=== PATIENT | female | born 1935 | race Caucasian/White ===

== ENCOUNTER 2019-12-25 11:26 | Emergency (ER) | payer OTHER ==
[2019-12-25 11:38] VITALS: BP 107/43; PULSE 83; BMI 34.3
--- NOTE | 2019-12-25 11:50 | PDOC ---
History of Present Illness - General Chief Complaint: Pain Stated Complaint: RT. FINGER PAIN Time Seen by Provider: 12/25/19 11:42 History Source: Patient Exam Limitations: No Limitations (unable to extend R middle finger since yesterday, denies trauma) - History of Present Illness Is this a multiple visit Asthma Patient?: No Past History - Travel History Traveled outside of the country in the last 30 days: No - Medical History Allergies/Adverse Reactions: Allergies Allergy/AdvReac Type Severity Reaction Status Date / Time aspirin Allergy Severe Vomiting Verified 12/25/19 11:38 cephalexin [Cephalexin] Allergy Severe DIARRHEA Verified 12/25/19 11:38 erythromycin base Allergy Severe DIARRHEA Verified 12/25/19 11:38 [Erythromycin Base] fexofenadine HCl Allergy Severe Swelling Verified 12/25/19 11:38 [From Cielo-D] gabapentin [From Neurontin] Allergy Severe Swelling Verified 12/25/19 11:38 levofloxacin [From Levaquin] Allergy Severe Rash Verified 12/25/19 11:38 NSAIDS (Non-Steroidal Allergy Severe Verified 12/25/19 11:38 Anti-Inflamma pseudoephedrine HCl Allergy Severe Swelling Verified 12/25/19 11:38 [From Cielo-D] sulfamethoxazole Allergy Severe Rash Verified 12/25/19 11:38 [From Bactrim] trimethoprim [From Bactrim] Allergy Severe Rash Verified 12/25/19 11:38 Home Medications: Ambulatory Orders Allopurinol 300 mg PO DAILY 09/02/11 Furosemide [Lasix] 20 mg PO UTDICT 09/02/11 Levothyroxine [Synthroid -] 112 mcg PO DAILY 09/02/11 Metformin HCl [Glucophage] 500 mg PO BID 09/02/11 Metoclopramide Oral Soln [Reglan Oral Solution -] 10 mg PO BID 09/02/11 Nitrofurantoin Monohyd/M-Cryst [Macrobid 100 mg Capsule] 50 mg PO HS 09/02/11 Omeprazole 40 mg PO DAILY 09/02/11 Simvastatin [Zocor -] 10 mg PO HS 09/02/11 Tolterodine Tartrate LA [Detrol LA -] 4 mg PO DAILY 09/02/11 Valsartan [Diovan] 80 mg PO DAILY 09/02/11 Nitrofurantoin Monohyd/M-Cryst [Macrobid -] 100 mg PO BID #20 capsule 01/21/15 Ondansetron [Zofran Odt -] 4 mg SL TID #21 od.tablet 05/03/14 Oxycodone HCl/Acetaminophen [Percocet 5/325 -] 1 - 2 tab PO Q6H #20 tab 05/03/14 Amitriptyline HCl [Elavil -] 10 mg PO HS #90 tablet 10/02/15 Amitriptyline HCl [Elavil -] 25 mg PO DAILY #60 tablet 01/24/16 Amitriptyline HCl [Elavil -] 50 mg PO DAILY #60 tablet 05/29/16 Amitriptyline HCl 25 mg PO BID 30 Days #60 tablet 09/22/19 Gabapentin 300 mg PO QID 30 Days #120 capsule 10/03/19 Anemia: No Asthma: No Cancer: No Cardiac Disorders: No CVA: No COPD: No CHF: No Dementia: No Diabetes: Yes (NIDDM) GI Disorders: Yes (GERD) Disorders: Yes (HX UTI) HTN: Yes Hypercholesterolemia: Yes Liver Disease: No Seizures: No Thyroid Disease: Yes (HYPO) - Surgical History Abdominal Surgery: No Appendectomy: No Cardiac Surgery: No Cholecystectomy: No Lung Surgery: No Neurologic Surgery: No Orthopedic Surgery: No - Psycho-Social/Smoking History Smoking History: Never smoked Have you smoked in the past 12 months: No If you are a former smoker, when did you quit?: 1984 - Substance Abuse Hx (Audit-C & DAST Scrn) How often the patient has a drink containing alcohol: Never Score: In Men: 4 or > Positive; In Women: 3 or > Positive: 0 Screen Result (Pos requires Nsg. Audit-10AR): Negative Review of Systems - Review of Systems Constitutional: No: Chills, Fever Musculoskeletal: Yes: Joint Pain, Joint Stiffness. No: Joint Swelling, Muscle Pain, Muscle Weakness, Neck Pain *Physical Exam - Vital Signs Last Vital Signs Temp Pulse Resp BP Pulse Ox 83 18 107/43 L 100 12/25/19 11:35 12/25/19 11:35 12/25/19 11:35 12/25/19 11:35 - Physical Exam General Appearance: Yes: Nourished HEENT: positive: EOMI Musculoskeletal: positive: Other (R middle finger locked in flexion position, unable to extend, sensation intact. pulse intact, FROM in wrist) Neurologic: positive: field service supervisor II-XII NML intact, Fully Oriented, Alert, Normal Mood/Affect, Normal Response, Motor Strength / ED Treatment Course - RADIOLOGY Radiology Studies Ordered: Category Date Time Status FINGER(S) RIGHT [RAD] Stat Radiology 12/25/19 11:45 Ordered Medical Decision Making - Medical Decision Making 12/25/19 11:51 84 years old female [id number] presents with right middle finger that was permanently in flexion position since yesterday. Patient denies any trauma Vital signs stable. Exam consist of right middle finger that is permanently in the flexion position unable to extend. dx: trigger finger Plan is x-ray will attempt to digital block to extend finger splint ortho referral 12/25/19 11:56 12/25/19 12:46 Procedure note: Area cleanse with betadine Pt anesthetized with 1% lidocaine along the A1 rodolfo region finger was manually reduced and extension was obtained, splint applied ortho referral given sensation was intact 12/25/19 13:05 Discharge - Discharge Information Problems reviewed: Yes Clinical Impression/Diagnosis: Trigger finger of right hand Qualifiers: Trigger finger location: middle finger Qualified Code(s): M65.331 - Trigger finger, right middle finger Condition: Good Disposition: HOME - Admission No - Additional Discharge Information Prescription Drug Monitoring Program (I-STOP) results: I-STOP not reviewed - Follow up/Referral Referrals: Cheri Medley MD [Primary Care Provider] - Hima Alarcon MD [Staff Physician] - - Patient Discharge Instructions Patient Printed Discharge Instructions: Trigger Finger Additional Instructions: Please follow up with orthopedic keep splint on return to the ER if worsening symptom occurs - Post Discharge Activity
== END 2019-12-25 12:53 | disposition home or self-care (01) ==
LOC: JERFT 11:26
DX: M65.331 Trigger finger, right middle finger (principal)
CPT/HCPCS: 73140-TC-RT-FY; 99283-25

== ENCOUNTER 2021-02-21 12:53 | Inpatient (IN) | payer OTHER ==
[2021-02-21] MEDS ORDERED: ACETAMINOPHEN 1000 MG/100 ML VIAL IVPB ONE (13:24)
[2021-02-21] MEDS ORDERED: ACETAMINOPHEN INJECTION 100 ML IVPB ONE (13:26)
[2021-02-21 13:54] LABS: BASO % 3.7 % (0-2.0); HEMATOCRIT 36.6 % (32.4-45.2); HEMOGLOBIN 12.6 GM/dL (10.7-15.3); LYMPH % 12.5 % (8-40); MCH 32.3 pg (25.7-33.7); MCHC 34.5 g/dl (32.0-36.0); MEAN CELL VOLUME 93.5 fl (80-96); MEAN PLT VOLUME 9.4 fl (7.5-11.1); MONO % 8.6 % (3.8-10.2); NEUT % 75.2 % (42.8-82.8); PLATELET COUNT 110 10^3/uL (134-434); RBC 3.92 M/mm3 (3.60-5.2); RDW 15.3 % (11.6-15.6); WHITE BLOOD COUNT 6.9 K/mm3 (4.0-10.0)
[2021-02-21 14:05] LABS: INR 1.27 (0.83-1.09); PROTHROMBIN TIME (PATIENT) 14.3 SEC (9.7-13.0)
[2021-02-21 14:08] LABS: ACTIVATED PTT 24.2 SECONDS (25.2-36.5)
[2021-02-21 14:18] LABS: CHLORIDE 103 mmol/L (98-107); SODIUM 137 mmol/L (136-145)
[2021-02-21 14:20] LABS: ALBUMIN 3.6 g/dl (3.4-5.0); ANION GAP 9 MMOL/L (8-16); BLOOD UREA NITROGEN 22.9 mg/dL (7-18); CALCIUM 9.2 mg/dL (8.5-10.1); CO2 25 mmol/L (21-32)
[2021-02-21 14:21] LABS: GLUCOSE,RANDOM 126 mg/dL (74-106); MAGNESIUM 1.9 mg/dL (1.8-2.4)
[2021-02-21 14:23] LABS: SGPT/ALT 28 U/L (13-61)
[2021-02-21 14:24] LABS: SGOT/AST 50 U/L (15-37)
[2021-02-21 14:25] LABS: BILIRUBIN,TOTAL 1.3 mg/dL (0.2-1); TOT PROT 7.8 g/dl (6.4-8.2)
[2021-02-21 14:25] LABS: EPI CELLS 1 /uL (0-25.1); HYALINE CASTS 0 /uL (0-3.1); PH,URINE 5.5 (5.0-8.0); URINE APPEARANCE CLEAR; URINE BACTERIA 3880 /uL (0-1359); URINE BILIRUBIN NEGATIVE (NEGATIVE); URINE COLOR YELLOW; URINE GLUCOSE (UA) NEGATIVE (NEGATIVE); URINE KETONE TRACE (NEGATIVE); URINE LEUK ESTERASE 2+ (NEGATIVE); URINE NITRITE POSITIVE (NEGATIVE); URINE PROTEIN 2+ (NEGATIVE); URINE RBC 8 /uL (0-23.9); URINE UROBILINOGEN 0.2 mg/dL (0.2-1.0); URINE WBC 630 /uL (0-25.8)
[2021-02-21 14:26] LABS: ALK PHOS 77 U/L (45-117)
[2021-02-21 14:29] LABS: N-TERMINAL BNP 698.3 pg/ml (5-450)
[2021-02-21] MEDS ORDERED: NITROFURANTOIN MACROCRYSTAL 50 MG CAPSULE (FP) PO SCH (14:45)
[2021-02-21] MEDS ORDERED: NITROFURANTOIN MACROCRYSTAL 50 MG CAPSULE (FP) ONE (16:47)
[2021-02-22 08:09] LABS: BLOOD UREA NITROGEN 21.7 mg/dL (7-18); CALCIUM 8.9 mg/dL (8.5-10.1)
[2021-02-22 08:13] LABS: CREATININE 0.8 mg/dL (0.55-1.3)
[2021-02-22 08:15] LABS: BASO % 2.3 % (0-2.0); HEMATOCRIT 34.6 % (32.4-45.2); HEMOGLOBIN 12.1 GM/dL (10.7-15.3); LYMPH % 21.2 % (8-40); MCH 32.2 pg (25.7-33.7); MCHC 34.9 g/dl (32.0-36.0); MEAN CELL VOLUME 92.3 fl (80-96); MEAN PLT VOLUME 9.4 fl (7.5-11.1); NEUT % 66.5 % (42.8-82.8); PLATELET COUNT 106 10^3/uL (134-434); RBC 3.74 M/mm3 (3.60-5.2); WHITE BLOOD COUNT 7.3 K/mm3 (4.0-10.0)
[2021-02-22] MEDS: NITROFURANTOIN MACROCRYSTAL 50 MG CAPSULE (FP) PO SCH ×3 (12:55→23:30)
[2021-02-22] MEDS ORDERED: NITROFURANTOIN MACROCRYSTAL 50 MG CAPSULE (FP) ONE (12:55)
[2021-02-22 18:45] VITALS: BMI 31.1
[2021-02-22] MEDS: INSULIN SLIDING SCALE (NOVOLOG) 1 VIAL SQ SCH (18:48)
[2021-02-22] MEDS: ATORVASTATIN CA 10 MG TABLET (FP) PO SCH (21:51)
[2021-02-22] MEDS ORDERED: MELATONIN 5 MG TABLETS PO ONE (23:15)
[2021-02-22] MEDS: ACETAMINOPHEN 1000 MG/100 ML VIAL IVPB PRN (23:30)
[2021-02-23] MEDS: INSULIN SLIDING SCALE (NOVOLOG) 1 VIAL SQ SCH (06:53)
[2021-02-23] MEDS: NITROFURANTOIN MACROCRYSTAL 50 MG CAPSULE (FP) PO SCH ×3 (06:53→17:47)
[2021-02-23] MEDS: LEVOTHYROXINE NA 100 MCG TABLET (FP) PO SCH (06:53)
[2021-02-23 08:40] LABS: BASO % 0.8 % (0-2.0); HEMATOCRIT 33.4 % (32.4-45.2); HEMOGLOBIN 11.6 GM/dL (10.7-15.3); LYMPH % 26.6 % (8-40); MCH 32.3 pg (25.7-33.7); MCHC 34.7 g/dl (32.0-36.0); MEAN PLT VOLUME 9.6 fl (7.5-11.1); MONO % 8.8 % (3.8-10.2); NEUT % 63.8 % (42.8-82.8); PLATELET COUNT 106 10^3/uL (134-434); RBC 3.59 M/mm3 (3.60-5.2); RDW 15.3 % (11.6-15.6); WHITE BLOOD COUNT 5.8 K/mm3 (4.0-10.0)
[2021-02-23 09:15] LABS: ALBUMIN 2.9 g/dl (3.4-5.0); CALCIUM 8.5 mg/dL (8.5-10.1)
[2021-02-23 09:16] LABS: BLOOD UREA NITROGEN 21.5 mg/dL (7-18)
[2021-02-23 09:17] LABS: TOT PROT 6.4 g/dl (6.4-8.2)
[2021-02-23 09:18] LABS: CREATININE 0.8 mg/dL (0.55-1.3); URIC ACID 4.6 mg/dL (2.6-7.2)
[2021-02-23] MEDS ORDERED: PT OWN MED DRAWER 7, Y5N ONE (09:49)
[2021-02-23] MEDS: ALLOPURINOL 300 MG TABLET (FP) PO SCH (09:51)
[2021-02-23] MEDS: FUROSEMIDE 20 MG TABLET (FP) PO SCH (09:51)
[2021-02-23] MEDS: ACETAMINOPHEN 1000 MG/100 ML VIAL IVPB PRN ×2 (09:52→22:03)
[2021-02-23] MEDS: HEPARIN NA (PORCINE) 5,000 UNITS/ML 1ML VIAL SQ SCH (21:34)
[2021-02-23] MEDS: ATORVASTATIN CA 10 MG TABLET (FP) PO SCH (21:34)
[2021-02-24] MEDS: NITROFURANTOIN MACROCRYSTAL 50 MG CAPSULE (FP) PO SCH ×4 (00:53→17:47)
[2021-02-24] MEDS: LEVOTHYROXINE NA 100 MCG TABLET (FP) PO SCH (06:37)
[2021-02-24] MEDS ORDERED: PT OWN MED DRAWER 7, Y5N ONE (09:41)
[2021-02-24] MEDS: ALLOPURINOL 300 MG TABLET (FP) PO SCH (10:03)
[2021-02-24] MEDS: FUROSEMIDE 20 MG TABLET (FP) PO SCH (10:03)
[2021-02-24] MEDS: ACETAMINOPHEN 325 MG TABLET (FP) PO PRN ×2 (10:03→21:29)
[2021-02-24] MEDS: LIDOCAINE 5% TOPICAL PATCH TP SCH (10:04)
[2021-02-24] MEDS: HEPARIN NA (PORCINE) 5,000 UNITS/ML 1ML VIAL SQ SCH ×2 (10:05→21:29)
[2021-02-24] MEDS: INSULIN SLIDING SCALE (NOVOLOG) 1 VIAL SQ SCH ×2 (11:23→11:28)
[2021-02-24] MEDS: LIDOCAINE PATCH REMOVAL MC SCH (21:29)
[2021-02-24] MEDS: MELATONIN 5 MG TABLETS PO PRN (21:29)
[2021-02-24] MEDS: ATORVASTATIN CA 10 MG TABLET (FP) PO SCH (21:29)
[2021-02-25] MEDS: NITROFURANTOIN MACROCRYSTAL 50 MG CAPSULE (FP) PO SCH ×4 (01:08→17:29)
[2021-02-25] MEDS: LEVOTHYROXINE NA 100 MCG TABLET (FP) PO SCH (07:39)
[2021-02-25] MEDS ORDERED: INSULIN (NOVOLOG) ASPART 100 UNITS/ML 10ML VIAL ONE (10:38)
[2021-02-25] MEDS ORDERED: PT OWN MED DRAWER 7, Y5N ONE (10:39)
[2021-02-25] MEDS: LIDOCAINE 5% TOPICAL PATCH TP SCH (10:47)
[2021-02-25] MEDS: HEPARIN NA (PORCINE) 5,000 UNITS/ML 1ML VIAL SQ SCH ×2 (10:47→21:15)
[2021-02-25] MEDS: FUROSEMIDE 20 MG TABLET (FP) PO SCH (10:47)
[2021-02-25] MEDS: ALLOPURINOL 300 MG TABLET (FP) PO SCH (10:47)
[2021-02-25] MEDS: INSULIN SLIDING SCALE (NOVOLOG) 1 VIAL SQ SCH (10:48)
[2021-02-25] MEDS: metFORMIN HCL 500 MG TABLET (FP) PO SCH ×2 (12:37→17:29)
[2021-02-25] MEDS: ATORVASTATIN CA 10 MG TABLET (FP) PO SCH (21:16)
[2021-02-25] MEDS: MELATONIN 5 MG TABLETS PO PRN (21:16)
[2021-02-25] MEDS: ACETAMINOPHEN 325 MG TABLET (FP) PO PRN (21:16)
[2021-02-25] MEDS: LIDOCAINE PATCH REMOVAL MC SCH (22:00)
[2021-02-26] MEDS: NITROFURANTOIN MACROCRYSTAL 50 MG CAPSULE (FP) PO SCH ×3 (00:13→12:03)
[2021-02-26] MEDS: ACETAMINOPHEN 325 MG TABLET (FP) PO PRN (03:42)
[2021-02-26] MEDS: LEVOTHYROXINE NA 100 MCG TABLET (FP) PO SCH (06:14)
[2021-02-26] MEDS: metFORMIN HCL 500 MG TABLET (FP) PO SCH (06:15)
[2021-02-26] MEDS ORDERED: PT OWN MED DRAWER 7, Y5N ONE (09:57)
[2021-02-26] MEDS: HEPARIN NA (PORCINE) 5,000 UNITS/ML 1ML VIAL SQ SCH (10:02)
[2021-02-26] MEDS: LIDOCAINE 5% TOPICAL PATCH TP SCH (10:02)
[2021-02-26] MEDS: FUROSEMIDE 20 MG TABLET (FP) PO SCH (10:02)
[2021-02-26] MEDS: INSULIN SLIDING SCALE (NOVOLOG) 1 VIAL SQ SCH (10:04)
[2021-02-26] MEDS: ALLOPURINOL 300 MG TABLET (FP) PO SCH (10:04)
[2021-02-26 12:26] VITALS: BP 118/54; PULSE 75; TEMP 97.9
== END 2021-02-26 16:01 | disposition home health service (06) | DRG 690 ==
LOC: JER 12:53 → JERBED 20:49 → J6S 02-22 18:23
PROVIDERS: ADMIT Internal Medicine; ATTEND Internal Medicine
DX: N39.0 Urinary tract infection, site not specified (principal); S32.050A Wedge compression fracture of fifth lumbar vertebra, initial encounter for closed fracture; M48.56XA Collapsed vertebra, not elsewhere classified, lumbar region, initial encounter for fracture; E11.9 Type 2 diabetes mellitus without complications; I10 Essential (primary) hypertension; E78.5 Hyperlipidemia, unspecified; E03.9 Hypothyroidism, unspecified; F41.9 Anxiety disorder, unspecified; K21.9 Gastro-esophageal reflux disease without esophagitis; R26.2 Difficulty in walking, not elsewhere classified; W19.XXXA Unspecified fall, initial encounter; Y93.9 Activity, unspecified; Y92.89 Other specified places as the place of occurrence of the external cause; Y99.9 Unspecified external cause status
CPT/HCPCS: 36415; 70450-TC; 71045-TC-FY; 72125-TC; 72170-TC-FY; 72192-TC; 73523-TC-FY; 73552-TC-RT-FY; 73562-TC-RT-FY; 73590-TC-RT-FY; 73610-TC-RT-FY; 73630-TC-RT-FY; 76604; 76705-TC; 80048; 80053; 81003; 82550; 82553; 82962; 83036; 83735; 83880; 84443; 84484; 84550; 85025; 85610; 85730; 87086; 87186; 93308; 97116-GP; 97161-GP; 99285-25; C9803; G0378; J0131; J1644; U0003; U0005

== ENCOUNTER 2021-03-28 10:16 | Inpatient (IN) | payer OTHER ==
[2021-03-28] MEDS ORDERED: LACTATED RINGERS SOLUTION 1,000 ML IV STA (10:53)
[2021-03-28] MEDS ORDERED: PIPERACILLIN/TAZOB 4.5 GM 4.5 GM in DEXTROSE 5%-WATER 100 ML IVPB ONE (11:07)
[2021-03-28] MEDS ORDERED: VANCOMYCIN 1 GM in D5W (PRE-DOCKED) 1,000 MG/250 ML IVPB ONE (11:07)
[2021-03-28] MEDS ORDERED: PIPERACILLIN/TAZOB 4.5 GM 4.5 GM/100 ML BAG IVPB ONE (11:23)
[2021-03-28] MEDS ORDERED: VANCOMYCIN 1 GRAM (PRE-DOCKED) 1,000 MG/250 ML BAG IVPB ONE (11:23)
[2021-03-28 11:28] LABS: VENOUS BASE EXCESS -1.1 mmol/L (-2-2); VENOUS O2 SATURATION 50.9 % (70-80); VENOUS PCO2 40.1 mmHg (38-52); VENOUS PH 7.39 (7.310-7.410)
[2021-03-28 11:34] LABS: BASO % 0.3 % (0-2.0); HEMATOCRIT 31.5 % (32.4-45.2); HEMOGLOBIN 10.9 GM/dL (10.7-15.3); LYMPH % 20.8 % (8-40); MCH 32.3 pg (25.7-33.7); MCHC 34.6 g/dl (32.0-36.0); MEAN CELL VOLUME 93.3 fl (80-96); MEAN PLT VOLUME 8.8 fl (7.5-11.1); MONO % 10.2 % (3.8-10.2); NEUT % 68.7 % (42.8-82.8); PLATELET COUNT 88 10^3/uL (134-434); RBC 3.37 M/mm3 (3.60-5.2); RDW 15.6 % (11.6-15.6); WHITE BLOOD COUNT 3.6 K/mm3 (4.0-10.0)
[2021-03-28 11:41] LABS: INR 1.14 (0.83-1.09); PROTHROMBIN TIME (PATIENT) 13.3 SEC (9.7-13.0)
[2021-03-28 11:43] LABS: ACTIVATED PTT 24.6 SECONDS (25.2-36.5)
[2021-03-28 11:48] LABS: CHLORIDE 104 mmol/L (98-107); SODIUM 137 mmol/L (136-145)
[2021-03-28 11:51] LABS: ALBUMIN 3.1 g/dl (3.4-5.0); ANION GAP 11 MMOL/L (8-16); BLOOD UREA NITROGEN 28.1 mg/dL (7-18); CALCIUM 8.5 mg/dL (8.5-10.1); CO2 22 mmol/L (21-32)
[2021-03-28 11:52] LABS: GLUCOSE,RANDOM 149 mg/dL (74-106)
[2021-03-28 11:54] LABS: BILIRUBIN,DIRECT 0.3 mg/dL (0.0-0.2); CREATININE 1.2 mg/dL (0.55-1.3); SGOT/AST 41 U/L (15-37)
[2021-03-28 11:55] LABS: SGPT/ALT 14 U/L (13-61)
[2021-03-28 11:56] LABS: BILIRUBIN,TOTAL 0.6 mg/dL (0.2-1); LDH 380 U/L (84-246); TOT PROT 7.3 g/dl (6.4-8.2)
[2021-03-28 11:57] LABS: ALK PHOS 56 U/L (45-117)
[2021-03-28 12:07] LABS: EPI CELLS 3 /uL (0-25.1); HYALINE CASTS 1 /uL (0-3.1); URINE APPEARANCE TURBID; URINE BACTERIA >9,000 /uL (0-1359); URINE BILIRUBIN NEGATIVE (NEGATIVE); URINE COLOR YELLOW; URINE GLUCOSE (UA) NEGATIVE (NEGATIVE); URINE KETONE TRACE (NEGATIVE); URINE LEUK ESTERASE 3+ (NEGATIVE); URINE NITRITE POSITIVE (NEGATIVE); URINE PROTEIN 3+ (NEGATIVE); URINE RBC 149 /uL (0-23.9); URINE WBC 9596 /uL (0-25.8)
[2021-03-28] MEDS ORDERED: ALBUTEROL SO4 HFA INHALER IH PRN (13:47)
[2021-03-28] MEDS ORDERED: DEXAMETHASONE SOD PHOSPHATE 4 MG/1 ML VIAL IVPB ONE (13:47)
[2021-03-28] MEDS ORDERED: ACETAMINOPHEN 325 MG TABLET (FP) PO PRN (13:48)
[2021-03-28] MEDS ORDERED: ASCORBIC ACID 500 MG TABLET (FP) ONE (14:28)
[2021-03-28] MEDS ORDERED: DEXAMETHASONE SOD PHOSPHATE 10 MG/1 ML VIAL ONE (14:29)
[2021-03-28] MEDS ORDERED: ENOXAPARIN NA (PORCINE) 40 MG/0.4 ML DISP.SYRIN SQ ONE (14:29)
[2021-03-28] MEDS: ASCORBIC ACID 500 MG TABLET (FP) PO SCH (14:37)
[2021-03-28] MEDS: ENOXAPARIN NA (PORCINE) 40 MG/0.4 ML DISP.SYRIN SQ SCH (14:37)
[2021-03-28] MEDS ORDERED: metFORMIN HCL 500 MG TABLET (FP) ONE (17:04)
[2021-03-28] MEDS: INSULIN SLIDING SCALE (NOVOLOG) 1 VIAL SQ SCH (17:10)
[2021-03-28] MEDS: metFORMIN HCL 500 MG TABLET (FP) PO SCH (17:10)
[2021-03-28] MEDS ORDERED: PIPERACILLIN/TAZOB 3.375 GM 3.375 GM/50 ML BAG IVPB ONE (18:29)
[2021-03-28] MEDS: PIPERACILLIN/TAZOB 3.375 GM 3.375 GM in DEXTROSE 5%-WATER - 50 ML IVPB SCH (18:53)
[2021-03-28] MEDS ORDERED: REMDESIVIR 200 MG in SODIUM CHLORIDE 250 ML IVPB ONE (19:30)
[2021-03-28] MEDS ORDERED: ATORVASTATIN CA 10 MG TABLET (FP) ONE (20:13)
[2021-03-28] MEDS: ATORVASTATIN CA 10 MG TABLET (FP) PO SCH (21:15)
[2021-03-28] MEDS ORDERED: MELATONIN 5 MG TABLETS ONE (23:32)
[2021-03-28] MEDS: MELATONIN 5 MG TABLETS PO PRN (23:39)
[2021-03-29] MEDS ORDERED: PIPERACILLIN/TAZOB 3.375 GM 3.375 GM/50 ML BAG IVPB ONE ×2 (01:41→09:12)
[2021-03-29] MEDS: PIPERACILLIN/TAZOB 3.375 GM 3.375 GM in DEXTROSE 5%-WATER - 50 ML IVPB SCH ×3 (01:55→17:33)
[2021-03-29] MEDS ORDERED: metFORMIN HCL 500 MG TABLET (FP) ONE (04:55)
[2021-03-29] MEDS ORDERED: LEVOTHYROXINE NA 25 MCG TABLET (FP) ONE (04:56)
[2021-03-29] MEDS: metFORMIN HCL 500 MG TABLET (FP) PO SCH (06:02)
[2021-03-29] MEDS: LEVOTHYROXINE NA 100 MCG TABLET (FP) PO SCH (06:03)
[2021-03-29] MEDS: INSULIN SLIDING SCALE (NOVOLOG) 1 VIAL SQ SCH ×2 (06:03→17:50)
[2021-03-29] MEDS ORDERED: ASCORBIC ACID 500 MG TABLET (FP) ONE (09:11)
[2021-03-29] MEDS ORDERED: amLODIPine BESYLATE 5 MG TABLET (FP) ONE (09:11)
[2021-03-29] MEDS ORDERED: ZINC SULFATE 220 MG CAPSULE (FP) ONE (09:11)
[2021-03-29] MEDS ORDERED: ENOXAPARIN NA (PORCINE) 40 MG/0.4 ML DISP.SYRIN SQ ONE (09:12)
[2021-03-29] MEDS ORDERED: PT OWN MED DRAWER 7, Y5N ONE (09:12)
[2021-03-29] MEDS ORDERED: DEXAMETHASONE SOD PHOSPHATE 4 MG/1 ML VIAL ONE (09:12)
[2021-03-29 09:54] LABS: BASO % 0.2 % (0-2.0); HEMATOCRIT 35.3 % (32.4-45.2); LYMPH % 16.7 % (8-40); MCH 31.9 pg (25.7-33.7); MCHC 33.9 g/dl (32.0-36.0); MEAN CELL VOLUME 94.2 fl (80-96); MEAN PLT VOLUME 9.4 fl (7.5-11.1); MONO % 8.6 % (3.8-10.2); NEUT % 74.5 % (42.8-82.8); PLATELET COUNT 98 10^3/uL (134-434); RBC 3.75 M/mm3 (3.60-5.2); RDW 15.9 % (11.6-15.6); WHITE BLOOD COUNT 3.7 K/mm3 (4.0-10.0)
[2021-03-29] MEDS: amLODIPine BESYLATE 5 MG TABLET (FP) PO SCH (09:54)
[2021-03-29] MEDS: ENOXAPARIN NA (PORCINE) 40 MG/0.4 ML DISP.SYRIN SQ SCH (09:54)
[2021-03-29] MEDS: ZINC SULFATE 220 MG CAPSULE (FP) PO SCH (09:54)
[2021-03-29] MEDS: DEXAMETHASONE SOD PHOSPHATE 4 MG/1 ML VIAL IVPB SCH (09:54)
[2021-03-29] MEDS: ALLOPURINOL 300 MG TABLET (FP) PO SCH (09:55)
[2021-03-29] MEDS: ASCORBIC ACID 500 MG TABLET (FP) PO SCH (09:55)
[2021-03-29 10:19] LABS: ALBUMIN 2.7 g/dl (3.4-5.0); BLOOD UREA NITROGEN 22.9 mg/dL (7-18); CALCIUM 8.6 mg/dL (8.5-10.1)
[2021-03-29 10:22] LABS: CREATININE 0.9 mg/dL (0.55-1.3)
[2021-03-29 10:24] LABS: BILIRUBIN,TOTAL 0.6 mg/dL (0.2-1); TOT PROT 7.2 g/dl (6.4-8.2)
[2021-03-29] MEDS ORDERED: ALPRAZolam 0.25 MG TABLET PO PRN (13:01)
[2021-03-29 15:23] VITALS: BMI 32.5
[2021-03-29] MEDS ORDERED: PIPERACILLIN/TAZOBACTAM 3.375 GM VIAL IVPB ONE (17:31)
[2021-03-29] MEDS ORDERED: DEXTROSE 5%-WATER - 50 ML IVPB ONE (17:32)
[2021-03-29] MEDS ORDERED: REMDESIVIR 100 MG in SODIUM CHLORIDE 250 ML IVPB SCH (19:30)
[2021-03-29] MEDS: ATORVASTATIN CA 10 MG TABLET (FP) PO SCH (22:10)
[2021-03-30] MEDS: MELATONIN 5 MG TABLETS PO PRN (01:56)
[2021-03-30] MEDS ORDERED: LORazepam 1 MG TABLET PO ONE (02:34)
[2021-03-30] MEDS ORDERED: PIPERACILLIN/TAZOBACTAM 3.375 GM VIAL IVPB ONE ×3 (03:08→16:13)
[2021-03-30] MEDS ORDERED: DEXTROSE 5%-WATER - 50 ML IVPB ONE ×3 (03:08→16:13)
[2021-03-30] MEDS: PIPERACILLIN/TAZOB 3.375 GM 3.375 GM in DEXTROSE 5%-WATER - 50 ML IVPB SCH ×3 (03:10→17:00)
[2021-03-30] MEDS: LEVOTHYROXINE NA 100 MCG TABLET (FP) PO SCH ×2 (07:08→07:19)
[2021-03-30] MEDS: INSULIN SLIDING SCALE (NOVOLOG) 1 VIAL SQ SCH ×2 (07:09→16:22)
[2021-03-30] MEDS ORDERED: TOCILIZUMAB (ACTEMRA) 200 MG/10 ML VIAL IVPB ONE (10:15)
[2021-03-30] MEDS: DEXAMETHASONE SOD PHOSPHATE 4 MG/1 ML VIAL IVPB SCH (10:26)
[2021-03-30] MEDS: amLODIPine BESYLATE 5 MG TABLET (FP) PO SCH (10:26)
[2021-03-30] MEDS: ASCORBIC ACID 500 MG TABLET (FP) PO SCH (10:26)
[2021-03-30] MEDS: ENOXAPARIN NA (PORCINE) 40 MG/0.4 ML DISP.SYRIN SQ SCH (10:26)
[2021-03-30] MEDS: ZINC SULFATE 220 MG CAPSULE (FP) PO SCH (10:26)
[2021-03-30] MEDS: ALLOPURINOL 300 MG TABLET (FP) PO SCH (10:27)
[2021-03-30] MEDS ORDERED: TOCILIZUMAB IVPB ONE (11:00)
[2021-03-30] MEDS ORDERED: SODIUM CHLORIDE IVPB ONE (11:00)
[2021-03-30] MEDS ORDERED: ACETAMINOPHEN 325 MG TABLET (FP) PO PRN (13:44)
[2021-03-30] MEDS ORDERED: ALBUTEROL SO4 HFA INHALER IH PRN (13:44)
[2021-03-30] MEDS ORDERED: ALPRAZolam 0.25 MG TABLET PO PRN (13:44)
[2021-03-30] MEDS ORDERED: PT OWN MED DRAWER 7, Y5N ONE ×2 (17:43→18:29)
[2021-03-30] MEDS: REMDESIVIR 100 MG in SODIUM CHLORIDE 250 ML IVPB SCH (18:40)
[2021-03-30] MEDS ORDERED: ATORVASTATIN CA 10 MG TABLET (FP) PO SCH (22:00)
[2021-03-30] MEDS: NYSTATIN/TRIAMCINOLONE TOPICAL OINTMENT 15 GM TUBE TP SCH (22:58)
[2021-03-30] MEDS ORDERED: LORazepam 2 MG/ML SDV VIAL IVPUSH ONE (23:39)
[2021-03-31] MEDS ORDERED: PIPERACILLIN/TAZOBACTAM 3.375 GM VIAL IVPB ONE ×2 (03:24→10:42)
[2021-03-31] MEDS ORDERED: DEXTROSE 5%-WATER - 50 ML IVPB ONE ×2 (03:25→10:42)
[2021-03-31] MEDS: PIPERACILLIN/TAZOB 3.375 GM 3.375 GM in DEXTROSE 5%-WATER - 50 ML IVPB SCH ×2 (03:28→10:51)
[2021-03-31] MEDS: INSULIN SLIDING SCALE (NOVOLOG) 1 VIAL SQ SCH ×2 (06:09→17:39)
[2021-03-31] MEDS ORDERED: LEVOTHYROXINE NA 100 MCG TABLET (FP) PO SCH (07:00)
[2021-03-31 09:28] LABS: BASO % 0.1 % (0-2.0); EOS % 0.1 % (0-4.5); HEMATOCRIT 31.9 % (32.4-45.2); HEMOGLOBIN 11.1 GM/dL (10.7-15.3); MCH 32.4 pg (25.7-33.7); MCHC 34.7 g/dl (32.0-36.0); MEAN CELL VOLUME 93.2 fl (80-96); MEAN PLT VOLUME 9.1 fl (7.5-11.1); MONO % 8.8 % (3.8-10.2); PLATELET COUNT 122 10^3/uL (134-434); RBC 3.42 M/mm3 (3.60-5.2); RDW 15.6 % (11.6-15.6); WHITE BLOOD COUNT 5.9 K/mm3 (4.0-10.0)
[2021-03-31 09:49] LABS: ALBUMIN 2.5 g/dl (3.4-5.0); BLOOD UREA NITROGEN 28.9 mg/dL (7-18); CALCIUM 8.7 mg/dL (8.5-10.1)
[2021-03-31 09:52] LABS: MAGNESIUM 1.7 mg/dL (1.8-2.4)
[2021-03-31 09:56] LABS: CREATININE 0.9 mg/dL (0.55-1.3); PHOSPHOROUS 3.1 mg/dL (2.5-4.9); TOT PROT 6.5 g/dl (6.4-8.2)
[2021-03-31 09:57] LABS: BILIRUBIN,TOTAL 0.6 mg/dL (0.2-1)
[2021-03-31] MEDS ORDERED: ASCORBIC ACID 500 MG TABLET (FP) PO SCH (10:00)
[2021-03-31] MEDS ORDERED: ZINC SULFATE 220 MG CAPSULE (FP) PO SCH (10:00)
[2021-03-31] MEDS ORDERED: ALLOPURINOL 300 MG TABLET (FP) PO SCH (10:00)
[2021-03-31] MEDS ORDERED: amLODIPine BESYLATE 10 MG TABLET (FP) PO SCH (10:00)
[2021-03-31] MEDS: DEXAMETHASONE SOD PHOSPHATE 4 MG/1 ML VIAL IVPB SCH (10:50)
[2021-03-31] MEDS: NYSTATIN/TRIAMCINOLONE TOPICAL OINTMENT 15 GM TUBE TP SCH ×2 (10:51→21:14)
[2021-03-31] MEDS: ENOXAPARIN NA (PORCINE) 40 MG/0.4 ML DISP.SYRIN SQ SCH (10:51)
[2021-03-31] MEDS ORDERED: PT OWN MED DRAWER 7, Y5N ONE ×2 (12:04→15:28)
[2021-03-31] MEDS: LEVOTHYROXINE SODIUM 100 MCG VIAL IVPUSH SCH (12:07)
[2021-03-31] MEDS: LORazepam 2 MG/ML SDV VIAL IVPUSH PRN ×2 (14:27→19:52)
[2021-03-31] MEDS ORDERED: PCA PUMP NR ONE (15:22)
[2021-03-31] MEDS: MORPHINE SULFATE/0.9% NACL/PF 100 MG/100 ML BAG IVPB SCH ×2 (15:38→17:31)
[2021-03-31] MEDS: REMDESIVIR 100 MG in SODIUM CHLORIDE 250 ML IVPB SCH (19:53)
[2021-04-01] MEDS: LORazepam 2 MG/ML SDV VIAL IVPUSH PRN (01:55)
[2021-04-01] MEDS: DEXAMETHASONE SOD PHOSPHATE 4 MG/1 ML VIAL IVPB SCH (09:54)
[2021-04-01] MEDS: NYSTATIN/TRIAMCINOLONE TOPICAL OINTMENT 15 GM TUBE TP SCH ×2 (09:54→22:50)
[2021-04-01] MEDS: ENOXAPARIN NA (PORCINE) 40 MG/0.4 ML DISP.SYRIN SQ SCH (09:54)
[2021-04-01] MEDS: LEVOTHYROXINE SODIUM 100 MCG VIAL IVPUSH SCH (09:55)
[2021-04-01] MEDS: AMINO ACIDS/PROTEIN HYDROLYS 30 ML LIQUID.PKT PO SCH (17:29)
[2021-04-01] MEDS: MORPHINE SULFATE/0.9% NACL/PF 100 MG/100 ML BAG IVPB SCH (17:34)
[2021-04-02] MEDS: MORPHINE SULFATE/0.9% NACL/PF 100 MG/100 ML BAG IVPB SCH ×2 (06:25→16:49)
[2021-04-02] MEDS: AMINO ACIDS/PROTEIN HYDROLYS 30 ML LIQUID.PKT PO SCH ×2 (08:29→16:53)
[2021-04-02] MEDS ORDERED: PT OWN MED DRAWER 7, Y5N ONE (08:55)
[2021-04-02] MEDS: DEXAMETHASONE SOD PHOSPHATE 4 MG/1 ML VIAL IVPB SCH (09:41)
[2021-04-02] MEDS: ENOXAPARIN NA (PORCINE) 40 MG/0.4 ML DISP.SYRIN SQ SCH (09:41)
[2021-04-02] MEDS: NYSTATIN/TRIAMCINOLONE TOPICAL OINTMENT 15 GM TUBE TP SCH ×2 (09:42→23:33)
[2021-04-02] MEDS: LEVOTHYROXINE SODIUM 100 MCG VIAL IVPUSH SCH (09:42)
[2021-04-03] MEDS ORDERED: PT OWN MED DRAWER 7, Y5N ONE (10:23)
[2021-04-03] MEDS: DEXAMETHASONE SOD PHOSPHATE 4 MG/1 ML VIAL IVPB SCH (10:45)
[2021-04-03] MEDS: ENOXAPARIN NA (PORCINE) 40 MG/0.4 ML DISP.SYRIN SQ SCH (10:45)
[2021-04-03] MEDS: LEVOTHYROXINE SODIUM 100 MCG VIAL IVPUSH SCH (10:45)
[2021-04-03] MEDS: AMINO ACIDS/PROTEIN HYDROLYS 30 ML LIQUID.PKT PO SCH (10:46)
[2021-04-03] MEDS: NYSTATIN/TRIAMCINOLONE TOPICAL OINTMENT 15 GM TUBE TP SCH (10:46)
[2021-04-03] MEDS ORDERED: ACETAMINOPHEN 1000 MG/100 ML VIAL IVPB PRN (12:28)
[2021-04-03 14:34] VITALS: BP 65/36; PULSE 128; TEMP 102.4
== END 2021-04-03 19:37 | disposition expired | DRG 177 ==
LOC: JER 10:16 → JERBED 12:06 → J6S 03-29 12:47 → J4S 03-30 14:44
PROVIDERS: ADMIT Internal Medicine; ATTEND Internal Medicine
PROC: XW033E5 Introduction of Remdesivir Anti-infective into Peripheral Vein, Percutaneous Approach, New Technology Group 5 (ICD-10-PCS; principal; 2021-03-30)
PROC: XW033H5 Introduction of Tocilizumab into Peripheral Vein, Percutaneous Approach, New Technology Group 5 (ICD-10-PCS; 2021-03-30)
DX: U07.1 COVID-19 (principal); J12.82 Pneumonia due to coronavirus disease 2019; J96.01 Acute respiratory failure with hypoxia; N39.0 Urinary tract infection, site not specified; K21.9 Gastro-esophageal reflux disease without esophagitis; E78.5 Hyperlipidemia, unspecified; I10 Essential (primary) hypertension; E11.9 Type 2 diabetes mellitus without complications; E03.9 Hypothyroidism, unspecified; F41.9 Anxiety disorder, unspecified; E66.9 Obesity, unspecified; Z68.32 Body mass index [BMI] 32.0-32.9, adult; D69.6 Thrombocytopenia, unspecified; B96.20 Unspecified Escherichia coli [E. coli] as the cause of diseases classified elsewhere
CPT/HCPCS: 36415; 71045-TC-FY; 80053; 81003; 82248; 82550; 82728; 82803; 82962; 83605; 83615; 83735; 83880; 84100; 84484; 85025; 85379; 85610; 85730; 86140; 86480; 86803; 87040; 87086; 87186; 87340; 87517; 87804; 93005; 93010; 94660; 99291; C9399; C9803; J3262; U0003; U0005